=== PATIENT | male | born 1965 | race African-American/Black ===

== ENCOUNTER 2017-08-19 22:27 | Emergency (ER) | payer OTHER, MEDICARE ==
[2017-08-19 23:17] LABS: ADD MAN DIFF? NO; BASOPHILS % 0.4 % (0.0-2.0); EOSINOPHILS # 0.1 10^3/ul (0.0-0.5); EOSINOPHILS % 1.5 % (0.0-7.0); HEMATOCRIT 43.3 % (42.0-52.0); HEMOGLOBIN 13.9 g/dl (14.0-18.0); LYMPHOCYTES # 1.7 10^3/ul (0.8-2.9); LYMPHOCYTES % 19.5 % (15.0-51.0); MEAN CORPUSCULAR HEMOGLOBIN 30.4 pg (29.0-33.0); MEAN CORPUSCULAR HGB CONC 32.1 g/dl (32.0-37.0); MEAN CORPUSCULAR VOLUME 94.7 fl (82.0-101.0); MEAN PLATELET VOLUME 10.1 fl (7.4-10.4); MONOCYTE # 0.9 10^3/ul (0.3-0.9); MONOCYTES % 10.2 % (0.0-11.0); NEUTROPHIL # 5.8 10^3/ul (1.6-7.5); NEUTROPHILS % 68.2 % (39.0-77.0); PLATELET COUNT 178 10^3/UL (140-415); RED BLOOD COUNT 4.57 10^6/ul (4.70-6.10); RED CELL DISTRIBUTION WIDTH 15.8 % (11.5-14.5)
[2017-08-19 23:17] LABS: WHITE BLOOD COUNT 8.6 10^3/ul (4.8-10.8)
[2017-08-19] MEDS: LIDOCAINE/MYLANTA 40 ML BTL PO (23:20)
[2017-08-19] MEDS: METHYLPREDNISOLONE 125 MG INJ IV (23:20)
[2017-08-19] MEDS: ONDANSETRON 4 MG INJ IV (23:20)
[2017-08-19] MEDS: morphine 4 MG/ML VIAL IV (23:20)
[2017-08-19] MEDS: SOD CHLORIDE 0.9% 1,000 ML IV (23:21)
[2017-08-19] MEDS: ALBUTEROL 0.5% (NEB) 2.5 MG/0.5 ML AMP INH (23:29)
[2017-08-19] MEDS: IPRATROPIUM (NEB) 0.5 MG/2.5 ML AMP INH (23:29)
[2017-08-19 23:41] LABS: ALANINE AMINOTRANSFERASE 37 IU/L (13-69); ALBUMIN 3.7 g/dl (3.3-4.9); ALBUMIN/GLOBULIN RATIO 1.12; ALKALINE PHOSPHATASE 194 IU/L (42-121); ANION GAP 9 (8-16); ASPARTATE AMINO TRANSFERASE 30 IU/L (15-46); BILIRUBIN,INDIRECT 0.3 mg/dl (0-1.1); BILIRUBIN,TOTAL 0.3 mg/dl (0.2-1.3); BLOOD UREA NITROGEN 22 mg/dl (7-20); CALCIUM 8.8 mg/dl (8.4-10.2); CARBON DIOXIDE 28 mmol/L (21-31); CHLORIDE 103 mmol/L (97-110); CREATININE 0.93 mg/dl (0.61-1.24); GLUCOSE 180 mg/dl (70-220); LIPASE 161 U/L (23-300); POTASSIUM 4.7 mmol/L (3.5-5.1); SODIUM 135 mmol/L (135-144)
[2017-08-19 23:47] LABS: B-TYPE NATRIURETIC PEPTIDE 1470 PG/ML (0-125)
[2017-08-19 23:51] LABS: TROPONIN-I < 0.010 ng/ml (0.000-0.120)
[2017-08-20] MEDS: FUROSEMIDE 40 MG INJ IV (01:31)
[2017-08-20] MEDS: HYDROCODONE/APAP (10/325) TAB PO (02:45)
[2017-08-20] MEDS ORDERED: NACL 0.9% 3 ML SYG IV (05:30)
[2017-08-20] MEDS ORDERED: ONDANSETRON 4 MG INJ IV (05:30)
[2017-08-20] MEDS ORDERED: MAGNESIUM HYDROXIDE 30ML CUP PO (05:30)
[2017-08-20] MEDS ORDERED: morphine 2 MG INJ IV (05:30)
[2017-08-20] MEDS ORDERED: ACETAMINOPHEN 325 MG TAB PO (05:30)
[2017-08-20 05:57] LABS: ADD MAN DIFF? NO
[2017-08-20 06:00] LABS: ABNORMAL IP MESSAGE 1; BASOPHILS % 0.1 % (0.0-2.0); EOSINOPHILS % 0.1 % (0.0-7.0); HEMATOCRIT 43.6 % (42.0-52.0); LYMPHOCYTES # 0.4 10^3/ul (0.8-2.9); LYMPHOCYTES % 5.5 % (15.0-51.0); MEAN CORPUSCULAR HEMOGLOBIN 31.7 pg (29.0-33.0); MEAN CORPUSCULAR HGB CONC 32.1 g/dl (32.0-37.0); MEAN CORPUSCULAR VOLUME 98.6 fl (82.0-101.0); MEAN PLATELET VOLUME 10.1 fl (7.4-10.4); MONOCYTE # 0.1 10^3/ul (0.3-0.9); MONOCYTES % 0.7 % (0.0-11.0); NEUTROPHIL # 6.8 10^3/ul (1.6-7.5); NEUTROPHILS % 93.5 % (39.0-77.0); PLATELET COUNT 153 10^3/UL (140-415); POSITIVE DIFF @See below; RED BLOOD COUNT 4.42 10^6/ul (4.70-6.10); RED CELL DISTRIBUTION WIDTH 15.4 % (11.5-14.5)
[2017-08-20 06:00] LABS: WHITE BLOOD COUNT 7.2 10^3/ul (4.8-10.8)
[2017-08-20 06:26] LABS: ANION GAP 12 (8-16); BLOOD UREA NITROGEN 21 mg/dl (7-20); CALCIUM 8.2 mg/dl (8.4-10.2); CARBON DIOXIDE 29 mmol/L (21-31); CHLORIDE 101 mmol/L (97-110); CREATININE 0.96 mg/dl (0.61-1.24); GLUCOSE 340 mg/dl (70-220); POTASSIUM 5.6 mmol/L (3.5-5.1); SODIUM 136 mmol/L (135-144)
[2017-08-20] MEDS: FAMOTIDINE 20 MG TAB PO (08:38)
[2017-08-20] MEDS: METHYLPREDNISOLONE 125 MG INJ IV (08:39)
[2017-08-20] MEDS: HEPARIN 5,000 UNIT/0.5 ML VIAL SC (08:40)
[2017-08-20] MEDS ORDERED: FUROSEMIDE 20 MG INJ IV (09:00)
[2017-08-20] MEDS: ALBUTEROL/IPRATROPIUM (NEB) 3 ML AMP HHN (09:06)
== END 2017-08-20 10:49 | disposition left against medical advice (07) ==
LOC: E/R 22:27
DX: J96.00 Acute respiratory failure, unspecified whether with hypoxia or hypercapnia (principal); J44.9 Chronic obstructive pulmonary disease, unspecified; I50.9 Heart failure, unspecified; E11.9 Type 2 diabetes mellitus without complications; I10 Essential (primary) hypertension; F17.210 Nicotine dependence, cigarettes, uncomplicated; Z99.89 Dependence on other enabling machines and devices
CPT/HCPCS: 36415; 71045; 71250; 74018; 76700; 80048; 80053; 83690; 83880; 84484; 85025; 93005; 93306; 94640; 94644; 94660; 96372; 96374; 96375; 96376; 99291-25

== ENCOUNTER 2017-11-06 01:26 | Inpatient (IN) | payer MEDICARE, OTHER ==
[2017-11-06] MEDS ORDERED: NORepinephrine 8MG/250 ML (PMX 250 ML (01:41)
[2017-11-06 02:11] LABS: ADD MAN DIFF? NO
[2017-11-06 02:13] LABS: WHITE BLOOD COUNT 8.6 10^3/ul (4.8-10.8)
[2017-11-06 02:13] LABS: BASOPHILS % 0.5 % (0.0-2.0); EOSINOPHILS # 0.3 10^3/ul (0.0-0.5); EOSINOPHILS % 2.9 % (0.0-7.0); HEMATOCRIT 42.2 % (42.0-52.0); HEMOGLOBIN 12.8 g/dl (14.0-18.0); LYMPHOCYTES # 3.6 10^3/ul (0.8-2.9); LYMPHOCYTES % 42.2 % (15.0-51.0); MEAN CORPUSCULAR HEMOGLOBIN 30.5 pg (29.0-33.0); MEAN CORPUSCULAR HGB CONC 30.3 g/dl (32.0-37.0); MEAN CORPUSCULAR VOLUME 100.5 fl (82.0-101.0); MEAN PLATELET VOLUME 10.5 fl (7.4-10.4); MONOCYTE # 0.8 10^3/ul (0.3-0.9); MONOCYTES % 9.8 % (0.0-11.0); NEUTROPHIL # 3.8 10^3/ul (1.6-7.5); NEUTROPHILS % 44.1 % (39.0-77.0); NUCLEATED RED BLOOD CELLS% 0.2 /100WBC (0.0-0.0); PLATELET COUNT 212 10^3/UL (140-415); RED CELL DISTRIBUTION WIDTH 15.5 % (11.5-14.5)
[2017-11-06 02:20] LABS: ANION GAP 20 (8-16); BLOOD UREA NITROGEN 31 mg/dl (7-20); CALCIUM 7.7 mg/dl (8.4-10.2); CARBON DIOXIDE 20 mmol/L (21-31); CHLORIDE 101 mmol/L (97-110); CREATININE 1.49 mg/dl (0.61-1.24); GLUCOSE 209 mg/dl (70-220); POTASSIUM 5.9 mmol/L (3.5-5.1); SODIUM 135 mmol/L (135-144)
[2017-11-06 02:22] LABS: ACETAMINOPHEN < 10.0 ug/ml (10.0-30.0); ETHANOL < 10.0 mg/dl; SALICYLATE < 1.0 mg/dl (5.0-30.0)
[2017-11-06] MEDS: NORepinephrine 8MG/250 ML (PMX 250 ML IV (02:28)
[2017-11-06] MEDS: SOD CHLORIDE 0.9% 1,000 ML IV ×5 (02:28→15:42)
[2017-11-06 02:31] LABS: B-TYPE NATRIURETIC PEPTIDE 2230 PG/ML (0-125); TROPONIN-I < 0.012 ng/ml (0.000-0.120)
[2017-11-06] MEDS: CEFTRIAXONE 1 GM/50 ML (PMX) 50 ML IVPB (02:41)
[2017-11-06 03:03] LABS: AADO2 Arterial 518.3 mmHg (7.0-24.0); Allen Test ACCEPTAB; Arterial Base Excess -8.2 mmol/L (-3.0-3); Arterial Blood Gas Oxygen Sat 96.8 mmHG (95.0-98.0); Arterial COHb 6.6 % (0.0-3.0); Arterial Fraction of Oxyhgb 90.1 % (93.0-99.0); Arterial HCO3 23.5 mmol/L (22.0-26.0); Arterial MetHb 0.3 % (0.0-1.5); Arterial Total Hemglobin 14.5 g/dl (12.0-18.0); Arterial pCO2 79.9 mmhg (35-45); MODE VENT - AC; Site Right Radial
[2017-11-06] MEDS: ASPIRIN 300 MG SUPP PR (03:06)
[2017-11-06] MEDS: CALCIUM GLUCONATE 10% 1 GM in DEXTROSE 5% 100 ML IVPB (03:07)
[2017-11-06] MEDS: ASPIRIN 81 MG TAB PO (03:08)
[2017-11-06] MEDS: ACCU-CHEK XX ×22 (03:30→23:00)
[2017-11-06] MEDS ORDERED: MEPERIDINE 25 MG INJ IV ×2 (03:30)
[2017-11-06] MEDS ORDERED: ACETAMINOPHEN 650MG/20.3ML CUP PO (03:30)
[2017-11-06] MEDS ORDERED: PROPOFOL 100 ML IV (03:30)
[2017-11-06] MEDS ORDERED: ACETAMINOPHEN 650 MG SUPP PR ×2 (03:30)
[2017-11-06] MEDS ORDERED: DEXTROSE 50% 50 ML SYRINGE IV ×3 (03:30→07:30)
[2017-11-06] MEDS ORDERED: LORAZEPAM 2 MG INJ IV (03:30)
[2017-11-06] MEDS: FAMOTIDINE 20 MG INJ IV (03:35)
[2017-11-06 04:38] LABS: INR 1.27; PROTIME 16.1 Sec (11.9-14.9); PT RATIO 1.3
[2017-11-06 04:39] LABS: PARTIAL THROMBOPLASTIN TIME 30.1 Sec (25.0-35.0)
[2017-11-06 04:42] LABS: LACTIC ACID 4.2 mmol/L (0.5-2.0)
[2017-11-06] MEDS: OCULAR LUBRICANT 3.5 GM OPH OINT BOTH EYES ×3 (06:00→18:00)
[2017-11-06] MEDS: ARTIFICIAL TEARS 15 ML OPH BOTH EYES ×3 (06:00→18:00)
[2017-11-06] MEDS: PANTOPRAZOLE 40 MG INJ IV (06:00)
[2017-11-06] MEDS ORDERED: EPINEPHrine 0.1 MG/ML SYG (07:00)
[2017-11-06] MEDS ORDERED: NA BICARBONATE 8.4% 50 ML SYG (07:00)
[2017-11-06 07:23] LABS: LACTIC ACID 2.2 mmol/L (0.5-2.0)
[2017-11-06] MEDS ORDERED: ACCU-CHEK XX (07:30)
[2017-11-06] MEDS ORDERED: INSULIN HUMAN REGULAR 100 UNIT in SOD CHLORIDE 0.9% 99 ML IV (07:30)
[2017-11-06] MEDS: VECURONIUM 100 MG in DEXTROSE 5% 100 ML IV (08:13)
[2017-11-06] MEDS: MIDAZOLAM (DRIP) 50 mg/50 mL 50 ML IV (08:13)
[2017-11-06] MEDS: INSULIN HUMAN REGULAR 100 UNIT in SOD CHLORIDE 0.9% 99 ML IV (08:51)
[2017-11-06 09:44] LABS: CK-MB 8.78 ng/ml (0.0-2.4)
[2017-11-06 09:49] LABS: TROPONIN-I 0.525 ng/ml (0.000-0.120)
[2017-11-06] MEDS: CEFEPIME 1GM/50 ML (PMX) 50 ML IVPB ×2 (09:50→20:25)
[2017-11-06] MEDS: HEPARIN 5,000 UNIT/0.5 ML VIAL SC ×2 (09:53→20:27)
[2017-11-06 10:45] LABS: CK INDEX 4.7; CREATINE KINASE 185 IU/L (23-200)
[2017-11-06] MEDS ORDERED: DOPamine-D5W 1.6 MG/ML 250 ML IV (11:00)
[2017-11-06 11:24] LABS: ANION GAP 16 (8-16); BLOOD UREA NITROGEN 37 mg/dl (7-20); CALCIUM 7.9 mg/dl (8.4-10.2); CARBON DIOXIDE 22 mmol/L (21-31); CHLORIDE 104 mmol/L (97-110); CREATININE 1.65 mg/dl (0.61-1.24); GLUCOSE 169 mg/dl (70-220); SODIUM 136 mmol/L (135-144)
[2017-11-06 11:29] LABS: POTASSIUM 6.2 mmol/L (3.5-5.1)
[2017-11-06] MEDS ORDERED: NA POLYST SULFON 15 GM/60 ML BTL (11:59)
[2017-11-06] MEDS ORDERED: FUROSEMIDE 40 MG INJ (11:59)
[2017-11-06] MEDS: FUROSEMIDE 40 MG INJ IV (12:19)
[2017-11-06] MEDS: NA POLYST SULFON 15 GM/60 ML BTL PR (12:20)
[2017-11-06 14:13] LABS: ADD MAN DIFF? NO
[2017-11-06 14:16] LABS: ABNORMAL IP MESSAGE 1; BASOPHILS % 0.2 % (0.0-2.0); EOSINOPHILS % 0.2 % (0.0-7.0); HEMATOCRIT 46.7 % (42.0-52.0); HEMOGLOBIN 15.2 g/dl (14.0-18.0); LYMPHOCYTES # 0.6 10^3/ul (0.8-2.9); LYMPHOCYTES % 4.5 % (15.0-51.0); MEAN CORPUSCULAR HEMOGLOBIN 30.8 pg (29.0-33.0); MEAN CORPUSCULAR HGB CONC 32.5 g/dl (32.0-37.0); MEAN CORPUSCULAR VOLUME 94.7 fl (82.0-101.0); MONOCYTE # 1.1 10^3/ul (0.3-0.9); MONOCYTES % 8.8 % (0.0-11.0); NEUTROPHILS % 85.9 % (39.0-77.0); PLATELET COUNT 214 10^3/UL (140-415); POSITIVE DIFF @See below; RED BLOOD COUNT 4.93 10^6/ul (4.70-6.10); RED CELL DISTRIBUTION WIDTH 15.4 % (11.5-14.5)
[2017-11-06 14:16] LABS: WHITE BLOOD COUNT 12.8 10^3/ul (4.8-10.8)
[2017-11-06 14:33] LABS: ANION GAP 14 (8-16); BLOOD UREA NITROGEN 40 mg/dl (7-20); CALCIUM 7.7 mg/dl (8.4-10.2); CARBON DIOXIDE 26 mmol/L (21-31); CHLORIDE 103 mmol/L (97-110); CREATINE KINASE 196 IU/L (23-200); GLUCOSE 123 mg/dl (70-220); POTASSIUM 5.6 mmol/L (3.5-5.1); SODIUM 137 mmol/L (135-144)
[2017-11-06 14:45] LABS: CK INDEX 5.9
[2017-11-06 14:46] LABS: TROPONIN-I 0.538 ng/ml (0.000-0.120)
[2017-11-06 15:37] LABS: AADO2 Arterial 599.6 mmHg (7.0-24.0); Allen Test ACCEPTAB; Arterial Base Excess -0.3 mmol/L (-3.0-3); Arterial Blood Gas Oxygen Sat 98.4 mmHG (95.0-98.0); Arterial COHb 1.8 % (0.0-3.0); Arterial Fraction of Oxyhgb 96.4 % (93.0-99.0); Arterial HCO3 24.1 mmol/L (22.0-26.0); Arterial MetHb 0.2 % (0.0-1.5); Arterial Total Hemglobin 16.3 g/dl (12.0-18.0); Arterial pCO2 32.9 mmhg (35-45); MODE VENT - AC; Site Right Radial; Temperature 33.1 C
[2017-11-06 21:31] LABS: ADD MAN DIFF? NO
[2017-11-06 21:32] LABS: WHITE BLOOD COUNT 8.7 10^3/ul (4.8-10.8)
[2017-11-06 21:32] LABS: BASOPHILS % 0.2 % (0.0-2.0); EOSINOPHILS # 0.1 10^3/ul (0.0-0.5); HEMATOCRIT 45.7 % (42.0-52.0); HEMOGLOBIN 14.9 g/dl (14.0-18.0); LYMPHOCYTES # 0.6 10^3/ul (0.8-2.9); LYMPHOCYTES % 6.9 % (15.0-51.0); MEAN CORPUSCULAR HEMOGLOBIN 30.1 pg (29.0-33.0); MEAN CORPUSCULAR HGB CONC 32.6 g/dl (32.0-37.0); MEAN CORPUSCULAR VOLUME 92.3 fl (82.0-101.0); MONOCYTE # 0.8 10^3/ul (0.3-0.9); MONOCYTES % 8.8 % (0.0-11.0); NEUTROPHIL # 7.2 10^3/ul (1.6-7.5); NEUTROPHILS % 82.8 % (39.0-77.0); PLATELET COUNT 198 10^3/UL (140-415); RED BLOOD COUNT 4.95 10^6/ul (4.70-6.10); RED CELL DISTRIBUTION WIDTH 15.3 % (11.5-14.5)
[2017-11-06 21:35] LABS: AADO2 Arterial 514.1 mmHg (7.0-24.0); Arterial Base Excess -1.7 mmol/L (-3.0-3); Arterial Blood Gas Oxygen Sat 98.7 mmHG (95.0-98.0); Arterial COHb 1.4 % (0.0-3.0); Arterial Fraction of Oxyhgb 97.1 % (93.0-99.0); Arterial MetHb 0.2 % (0.0-1.5); MODE VENT - AC; Site Right Brachial
[2017-11-06 21:52] LABS: PARTIAL THROMBOPLASTIN TIME 32.5 Sec (25.0-35.0); PROTIME 17.4 Sec (11.9-14.9); PT RATIO 1.4
[2017-11-06 21:57] LABS: PHOSPHORUS 3.7 mg/dl (2.5-4.9)
[2017-11-06 21:57] LABS: ANION GAP 13 (8-16); BLOOD UREA NITROGEN 42 mg/dl (7-20); CALCIUM 7.6 mg/dl (8.4-10.2); CARBON DIOXIDE 26 mmol/L (21-31); CHLORIDE 104 mmol/L (97-110); CREATININE 1.95 mg/dl (0.61-1.24); GLUCOSE 103 mg/dl (70-220); MAGNESIUM 1.8 mg/dl (1.7-2.5); POTASSIUM 5.1 mmol/L (3.5-5.1); SODIUM 138 mmol/L (135-144)
[2017-11-06] MEDS: MAGNESIUM SULFATE 2 GM/50 ML 50 ML IVPB (22:32)
[2017-11-07] MEDS: ACCU-CHEK XX ×24 (00:14→23:12)
[2017-11-07] MEDS: OCULAR LUBRICANT 3.5 GM OPH OINT BOTH EYES ×5 (00:17→23:12)
[2017-11-07] MEDS: ARTIFICIAL TEARS 15 ML OPH BOTH EYES ×5 (00:17→23:12)
[2017-11-07 00:32] LABS: ADD MAN DIFF? NO
[2017-11-07 00:33] LABS: BASOPHILS % 0.4 % (0.0-2.0); EOSINOPHILS # 0.1 10^3/ul (0.0-0.5); EOSINOPHILS % 1.7 % (0.0-7.0); HEMATOCRIT 45.1 % (42.0-52.0); HEMOGLOBIN 14.7 g/dl (14.0-18.0); LYMPHOCYTES # 0.6 10^3/ul (0.8-2.9); LYMPHOCYTES % 9.1 % (15.0-51.0); MEAN CORPUSCULAR HEMOGLOBIN 29.8 pg (29.0-33.0); MEAN CORPUSCULAR HGB CONC 32.6 g/dl (32.0-37.0); MEAN CORPUSCULAR VOLUME 91.5 fl (82.0-101.0); MEAN PLATELET VOLUME 9.8 fl (7.4-10.4); MONOCYTE # 0.6 10^3/ul (0.3-0.9); MONOCYTES % 8.9 % (0.0-11.0); NEUTROPHIL # 5.6 10^3/ul (1.6-7.5); NEUTROPHILS % 79.6 % (39.0-77.0); PLATELET COUNT 196 10^3/UL (140-415); RED BLOOD COUNT 4.93 10^6/ul (4.70-6.10); RED CELL DISTRIBUTION WIDTH 15.2 % (11.5-14.5)
[2017-11-07 00:55] LABS: ANION GAP 12 (8-16); BLOOD UREA NITROGEN 43 mg/dl (7-20); CALCIUM 7.5 mg/dl (8.4-10.2); CARBON DIOXIDE 25 mmol/L (21-31); CHLORIDE 105 mmol/L (97-110); CREATININE 2.05 mg/dl (0.61-1.24); GLUCOSE 95 mg/dl (70-220); SODIUM 137 mmol/L (135-144)
[2017-11-07] MEDS: SOD CHLORIDE 0.9% 1,000 ML IV ×3 (02:23→15:00)
[2017-11-07] MEDS: ACETAMINOPHEN 650MG/20.3ML CUP PO ×4 (03:21→20:51)
[2017-11-07 03:24] LABS: Arterial Base Excess -0.4 mmol/L (-3.0-3); Arterial Blood Gas Oxygen Sat 97.6 mmHG (95.0-98.0); Arterial COHb 1.3 % (0.0-3.0); Arterial HCO3 22.6 mmol/L (22.0-26.0); Arterial MetHb 0.3 % (0.0-1.5); Arterial Total Hemglobin 15.8 g/dl (12.0-18.0); Arterial pCO2 27.5 mmhg (35-45); MODE VENT - AC; Site Right Brachial
[2017-11-07] MEDS ORDERED: ACETAMINOPHEN 650 MG SUPP PR (03:30)
[2017-11-07] MEDS: IPRATROPIUM (HFA) 12.9 GM INHALER INH ×4 (04:54→17:33)
[2017-11-07] MEDS: ALBUTEROL HFA 8 GM INHALER INH ×4 (04:54→17:34)
[2017-11-07] MEDS: PANTOPRAZOLE 40 MG INJ IV (05:49)
[2017-11-07 06:28] LABS: ADD MAN DIFF? NO
[2017-11-07 06:45] LABS: ABNORMAL IP MESSAGE 1; BASOPHILS % 0.6 % (0.0-2.0); EOSINOPHILS # 0.1 10^3/ul (0.0-0.5); EOSINOPHILS % 2.4 % (0.0-7.0); HEMATOCRIT 44.7 % (42.0-52.0); LYMPHOCYTES # 0.6 10^3/ul (0.8-2.9); LYMPHOCYTES % 10.9 % (15.0-51.0); MEAN CORPUSCULAR HEMOGLOBIN 30.3 pg (29.0-33.0); MEAN CORPUSCULAR HGB CONC 33.6 g/dl (32.0-37.0); MEAN CORPUSCULAR VOLUME 90.3 fl (82.0-101.0); MEAN PLATELET VOLUME 10.5 fl (7.4-10.4); MONOCYTE # 0.5 10^3/ul (0.3-0.9); MONOCYTES % 9.5 % (0.0-11.0); NEUTROPHIL # 4.1 10^3/ul (1.6-7.5); NEUTROPHILS % 76.2 % (39.0-77.0); PLATELET COUNT 187 10^3/UL (140-415); POSITIVE DIFF @See below; RED BLOOD COUNT 4.95 10^6/ul (4.70-6.10); RED CELL DISTRIBUTION WIDTH 15.1 % (11.5-14.5)
[2017-11-07 06:45] LABS: WHITE BLOOD COUNT 5.4 10^3/ul (4.8-10.8)
[2017-11-07 07:07] LABS: ANION GAP 10 (8-16); BLOOD UREA NITROGEN 45 mg/dl (7-20); CALCIUM 7.5 mg/dl (8.4-10.2); CARBON DIOXIDE 25 mmol/L (21-31); CHLORIDE 107 mmol/L (97-110); CREATININE 2.15 mg/dl (0.61-1.24); GLUCOSE 82 mg/dl (70-220); POTASSIUM 4.8 mmol/L (3.5-5.1); SODIUM 137 mmol/L (135-144)
[2017-11-07] MEDS: NORepinephrine 8MG/250 ML (PMX 250 ML IV ×2 (08:15→18:52)
[2017-11-07] MEDS: HEPARIN 5,000 UNIT/0.5 ML VIAL SC ×2 (08:27→20:52)
[2017-11-07] MEDS: CEFEPIME 1GM/50 ML (PMX) 50 ML IVPB (08:42)
[2017-11-07 09:46] LABS: AADO2 Arterial 468.7 mmHg (7.0-24.0); Allen Test ACCEPTAB; Arterial Base Excess -0.9 mmol/L (-3.0-3); Arterial Blood Gas Oxygen Sat 97.8 mmHG (95.0-98.0); Arterial COHb 1.1 % (0.0-3.0); Arterial Fraction of Oxyhgb 96.4 % (93.0-99.0); Arterial HCO3 21.4 mmol/L (22.0-26.0); Arterial MetHb 0.3 % (0.0-1.5); Arterial Total Hemglobin 16.2 g/dl (12.0-18.0); Arterial pCO2 25.9 mmhg (35-45); MODE VENT - AC; Site Right Radial; Temperature 33.7 C
[2017-11-07 10:00] LABS: AADO2 Arterial 546.4 mmHg (7.0-24.0)
[2017-11-07 10:03] LABS: AADO2 Arterial 612.4 mmHg (7.0-24.0); Allen Test ACCEPTAB; Arterial Base Excess -2.6 mmol/L (-3.0-3); Arterial Blood Gas Oxygen Sat 93.7 mmHG (95.0-98.0); Arterial COHb 3.4 % (0.0-3.0); Arterial Fraction of Oxyhgb 90.3 % (93.0-99.0); Arterial HCO3 25.3 mmol/L (22.0-26.0); Arterial MetHb 0.2 % (0.0-1.5); Arterial Total Hemglobin 16.5 g/dl (12.0-18.0); Arterial pCO2 47.8 mmhg (35-45); MODE VENT - AC; Site Right Radial; Temperature 33.6 C
[2017-11-07 10:09] LABS: AADO2 Arterial 514.1 mmHg (7.0-24.0); Arterial Base Excess -1.7 mmol/L (-3.0-3); Arterial Blood Gas Oxygen Sat 98.7 mmHG (95.0-98.0); Arterial COHb 1.4 % (0.0-3.0); Arterial Fraction of Oxyhgb 97.1 % (93.0-99.0); Arterial MetHb 0.2 % (0.0-1.5); MODE VENT - AC; Site Right Brachial
[2017-11-07] MEDS: FUROSEMIDE 40 MG INJ IV (11:10)
[2017-11-07 11:53] LABS: ALANINE AMINOTRANSFERASE 40 IU/L (13-69); ALBUMIN 2.2 g/dl (3.3-4.9); ALKALINE PHOSPHATASE 195 IU/L (42-121); ASPARTATE AMINO TRANSFERASE 52 IU/L (15-46); BILIRUBIN,INDIRECT 0.2 mg/dl (0-1.1); BILIRUBIN,TOTAL 0.2 mg/dl (0.2-1.3); TOTAL PROTEIN 5.2 g/dl (6.1-8.1)
[2017-11-07 12:16] LABS: ADD MAN DIFF? NO
[2017-11-07] MEDS: DEXTROSE 50% 50 ML SYRINGE IV (12:19)
[2017-11-07 12:32] LABS: ABNORMAL IP MESSAGE 1; BASOPHILS % 0.6 % (0.0-2.0); EOSINOPHILS # 0.2 10^3/ul (0.0-0.5); EOSINOPHILS % 2.2 % (0.0-7.0); HEMATOCRIT 44.1 % (42.0-52.0); HEMOGLOBIN 14.5 g/dl (14.0-18.0); LYMPHOCYTES # 0.5 10^3/ul (0.8-2.9); MEAN CORPUSCULAR HEMOGLOBIN 29.7 pg (29.0-33.0); MEAN CORPUSCULAR HGB CONC 32.9 g/dl (32.0-37.0); MEAN CORPUSCULAR VOLUME 90.2 fl (82.0-101.0); MEAN PLATELET VOLUME 10.4 fl (7.4-10.4); MONOCYTE # 0.7 10^3/ul (0.3-0.9); MONOCYTES % 9.6 % (0.0-11.0); NEUTROPHIL # 5.8 10^3/ul (1.6-7.5); NEUTROPHILS % 80.3 % (39.0-77.0); PLATELET COUNT 189 10^3/UL (140-415); POSITIVE DIFF @See below; RED BLOOD COUNT 4.89 10^6/ul (4.70-6.10); RED CELL DISTRIBUTION WIDTH 15.2 % (11.5-14.5)
[2017-11-07 12:32] LABS: WHITE BLOOD COUNT 7.3 10^3/ul (4.8-10.8)
[2017-11-07 12:56] LABS: ANION GAP 11 (8-16); BLOOD UREA NITROGEN 45 mg/dl (7-20); CALCIUM 7.3 mg/dl (8.4-10.2); CARBON DIOXIDE 26 mmol/L (21-31); CHLORIDE 107 mmol/L (97-110); CREATININE 2.27 mg/dl (0.61-1.24); GLUCOSE 72 mg/dl (70-220); POTASSIUM 4.7 mmol/L (3.5-5.1); SODIUM 139 mmol/L (135-144)
[2017-11-07 12:58] LABS: AMYLASE 53 U/L (11-123); CREATINE KINASE 130 IU/L (23-200); LIPASE 22 U/L (23-300); MAGNESIUM 2.1 mg/dl (1.7-2.5)
[2017-11-07 12:58] LABS: PHOSPHORUS 3.9 mg/dl (2.5-4.9)
[2017-11-07 13:10] LABS: CK INDEX 9.3
[2017-11-07 13:15] LABS: INR 1.56; PT RATIO 1.5
[2017-11-07 13:16] LABS: PARTIAL THROMBOPLASTIN TIME 35.2 Sec (25.0-35.0)
[2017-11-07 13:20] LABS: TROPONIN-I 0.199 ng/ml (0.000-0.120)
[2017-11-07 13:35] LABS: D-DIMER 2033.92 ng/ml (<460)
[2017-11-07 14:00] LABS: LACTIC ACID 1.5 mmol/L (0.5-2.0)
[2017-11-07 17:43] LABS: ADD MAN DIFF? NO
[2017-11-07 17:45] LABS: ABNORMAL IP MESSAGE 1; BASOPHILS % 0.4 % (0.0-2.0); EOSINOPHILS # 0.2 10^3/ul (0.0-0.5); EOSINOPHILS % 1.5 % (0.0-7.0); HEMATOCRIT 46.9 % (42.0-52.0); HEMOGLOBIN 15.8 g/dl (14.0-18.0); LYMPHOCYTES # 0.5 10^3/ul (0.8-2.9); LYMPHOCYTES % 5.2 % (15.0-51.0); MEAN CORPUSCULAR HEMOGLOBIN 30.2 pg (29.0-33.0); MEAN CORPUSCULAR HGB CONC 33.7 g/dl (32.0-37.0); MEAN CORPUSCULAR VOLUME 89.5 fl (82.0-101.0); MEAN PLATELET VOLUME 10.1 fl (7.4-10.4); MONOCYTE # 0.8 10^3/ul (0.3-0.9); MONOCYTES % 8.4 % (0.0-11.0); NEUTROPHIL # 8.4 10^3/ul (1.6-7.5); NEUTROPHILS % 84.2 % (39.0-77.0); PLATELET COUNT 206 10^3/UL (140-415); POSITIVE DIFF @See below; RED BLOOD COUNT 5.24 10^6/ul (4.70-6.10); RED CELL DISTRIBUTION WIDTH 15.2 % (11.5-14.5)
[2017-11-07 18:02] LABS: INR 1.54; PROTIME 18.8 Sec (11.9-14.9); PT RATIO 1.5
[2017-11-07 18:04] LABS: LACTIC ACID 1.3 mmol/L (0.5-2.0)
[2017-11-07 18:04] LABS: ANION GAP 9 (8-16); BLOOD UREA NITROGEN 46 mg/dl (7-20); CALCIUM 7.5 mg/dl (8.4-10.2); CARBON DIOXIDE 24 mmol/L (21-31); CHLORIDE 108 mmol/L (97-110); CREATININE 2.44 mg/dl (0.61-1.24); GLUCOSE 100 mg/dl (70-220); POTASSIUM 4.9 mmol/L (3.5-5.1); SODIUM 136 mmol/L (135-144)
[2017-11-07 18:06] LABS: PHOSPHORUS 4.3 mg/dl (2.5-4.9)
[2017-11-07 18:06] LABS: AMYLASE 49 U/L (11-123); LIPASE 26 U/L (23-300); MAGNESIUM 1.9 mg/dl (1.7-2.5)
[2017-11-07 18:10] LABS: ADD UMIC YES; UR ASCORBIC ACID NEGATIVE (NEGATIVE); UR BILIRUBIN (Dip) NEGATIVE (NEGATIVE); UR BLOOD (Dip) 2+ mg/dL (NEGATIVE); UR CLARITY CLEAR (CLEAR); UR COLOR STRAW (YELLOW); UR GLUCOSE (Dip) NEGATIVE (NEGATIVE); UR KETONES (Dip) NEGATIVE (NEGATIVE); UR LEUKOCYTE ESTERASE (Dip) 2+ Leu/ul (NEGATIVE); UR NITRITE (Dip) NEGATIVE (NEGATIVE); UR RBC 18 /HPF (0-5); UR SPECIFIC GRAVITY (Dip) 1.004 (1.003-1.030); UR TOTAL PROTEIN (Dip) NEGATIVE (NEGATIVE); UR UROBILINOGEN (Dip) NEGATIVE (NEGATIVE); UR WBC 38 /HPF (0-5)
[2017-11-07 18:17] LABS: TROPONIN-I 0.157 ng/ml (0.000-0.120)
[2017-11-07 18:28] LABS: AMPHETAMINE/METHAMPHETAMINE Negative (NEGATIVE); BARBITURATES Negative (NEGATIVE); BENZODIAZEPINES Positive (NEGATIVE); CANNABINOIDS Negative (NEGATIVE); COCAINE Negative (NEGATIVE); OPIATES Negative (NEGATIVE)
[2017-11-07 23:32] LABS: ADD MAN DIFF? NO
[2017-11-07 23:33] LABS: BASOPHIL # 0.1 10^3/ul (0.0-0.1); BASOPHILS % 0.4 % (0.0-2.0); EOSINOPHILS # 0.2 10^3/ul (0.0-0.5); EOSINOPHILS % 1.5 % (0.0-7.0); HEMATOCRIT 47.9 % (42.0-52.0); HEMOGLOBIN 16.1 g/dl (14.0-18.0); LYMPHOCYTES # 0.8 10^3/ul (0.8-2.9); LYMPHOCYTES % 6.2 % (15.0-51.0); MEAN CORPUSCULAR HEMOGLOBIN 30.3 pg (29.0-33.0); MEAN CORPUSCULAR HGB CONC 33.6 g/dl (32.0-37.0); MEAN CORPUSCULAR VOLUME 90.2 fl (82.0-101.0); MEAN PLATELET VOLUME 10.1 fl (7.4-10.4); MONOCYTE # 1.2 10^3/ul (0.3-0.9); MONOCYTES % 9.3 % (0.0-11.0); NEUTROPHIL # 10.4 10^3/ul (1.6-7.5); NEUTROPHILS % 82.3 % (39.0-77.0); PLATELET COUNT 199 10^3/UL (140-415); RED BLOOD COUNT 5.31 10^6/ul (4.70-6.10); RED CELL DISTRIBUTION WIDTH 15.4 % (11.5-14.5)
[2017-11-07 23:33] LABS: WHITE BLOOD COUNT 12.7 10^3/ul (4.8-10.8)
[2017-11-07 23:51] LABS: ANION GAP 13 (8-16); BLOOD UREA NITROGEN 46 mg/dl (7-20); CALCIUM 7.3 mg/dl (8.4-10.2); CARBON DIOXIDE 23 mmol/L (21-31); CHLORIDE 109 mmol/L (97-110); CREATININE 2.52 mg/dl (0.61-1.24); GLUCOSE 93 mg/dl (70-220); POTASSIUM 5.3 mmol/L (3.5-5.1); SODIUM 140 mmol/L (135-144)
[2017-11-08] MEDS: ACCU-CHEK XX ×13 (00:42→13:28)
[2017-11-08] MEDS: ACETAMINOPHEN 650MG/20.3ML CUP PO ×3 (03:29→17:49)
[2017-11-08 05:23] LABS: ADD MAN DIFF? NO
[2017-11-08] MEDS: SOD CHLORIDE 0.9% 1,000 ML IV ×3 (05:27→17:48)
[2017-11-08] MEDS: ARTIFICIAL TEARS 15 ML OPH BOTH EYES ×3 (05:28→17:49)
[2017-11-08] MEDS: OCULAR LUBRICANT 3.5 GM OPH OINT BOTH EYES ×3 (05:28→17:49)
[2017-11-08] MEDS: PANTOPRAZOLE 40 MG INJ IV (05:28)
[2017-11-08 05:29] LABS: WHITE BLOOD COUNT 11.8 10^3/ul (4.8-10.8)
[2017-11-08 05:29] LABS: BASOPHIL # 0.1 10^3/ul (0.0-0.1); BASOPHILS % 0.6 % (0.0-2.0); EOSINOPHILS # 0.2 10^3/ul (0.0-0.5); EOSINOPHILS % 1.6 % (0.0-7.0); HEMATOCRIT 47.3 % (42.0-52.0); HEMOGLOBIN 15.5 g/dl (14.0-18.0); LYMPHOCYTES # 0.9 10^3/ul (0.8-2.9); LYMPHOCYTES % 7.9 % (15.0-51.0); MEAN CORPUSCULAR HEMOGLOBIN 30.1 pg (29.0-33.0); MEAN CORPUSCULAR HGB CONC 32.8 g/dl (32.0-37.0); MEAN CORPUSCULAR VOLUME 91.8 fl (82.0-101.0); MEAN PLATELET VOLUME 10.9 fl (7.4-10.4); MONOCYTE # 1.2 10^3/ul (0.3-0.9); MONOCYTES % 9.9 % (0.0-11.0); NEUTROPHIL # 9.4 10^3/ul (1.6-7.5); NEUTROPHILS % 79.7 % (39.0-77.0); PLATELET COUNT 209 10^3/UL (140-415); RED BLOOD COUNT 5.15 10^6/ul (4.70-6.10); RED CELL DISTRIBUTION WIDTH 15.5 % (11.5-14.5)
[2017-11-08 05:49] LABS: ANION GAP 12 (8-16); BLOOD UREA NITROGEN 47 mg/dl (7-20); CALCIUM 7.3 mg/dl (8.4-10.2); CARBON DIOXIDE 23 mmol/L (21-31); CHLORIDE 110 mmol/L (97-110); CREATININE 2.82 mg/dl (0.61-1.24); GLUCOSE 82 mg/dl (70-220); POTASSIUM 5.6 mmol/L (3.5-5.1); SODIUM 139 mmol/L (135-144)
[2017-11-08] MEDS: HEPARIN 5,000 UNIT/0.5 ML VIAL SC ×2 (09:18→20:56)
[2017-11-08] MEDS: FUROSEMIDE 40 MG INJ IV (09:18)
[2017-11-08 12:57] LABS: ADD MAN DIFF? NO
[2017-11-08 13:00] LABS: WHITE BLOOD COUNT 14.2 10^3/ul (4.8-10.8)
[2017-11-08 13:00] LABS: ABNORMAL IP MESSAGE 1; BASOPHIL # 0.1 10^3/ul (0.0-0.1); BASOPHILS % 0.5 % (0.0-2.0); EOSINOPHILS # 0.2 10^3/ul (0.0-0.5); EOSINOPHILS % 1.5 % (0.0-7.0); HEMOGLOBIN 14.8 g/dl (14.0-18.0); LYMPHOCYTES % 7.2 % (15.0-51.0); MEAN CORPUSCULAR HEMOGLOBIN 29.7 pg (29.0-33.0); MEAN CORPUSCULAR HGB CONC 32.2 g/dl (32.0-37.0); MEAN CORPUSCULAR VOLUME 92.4 fl (82.0-101.0); MEAN PLATELET VOLUME 10.8 fl (7.4-10.4); MONOCYTE # 1.6 10^3/ul (0.3-0.9); MONOCYTES % 10.9 % (0.0-11.0); NEUTROPHIL # 11.3 10^3/ul (1.6-7.5); NEUTROPHILS % 79.5 % (39.0-77.0); PLATELET COUNT 194 10^3/UL (140-415); POSITIVE DIFF @See below; RED BLOOD COUNT 4.98 10^6/ul (4.70-6.10)
[2017-11-08 13:27] LABS: ANION GAP 12 (8-16); BLOOD UREA NITROGEN 49 mg/dl (7-20); CALCIUM 7.2 mg/dl (8.4-10.2); CARBON DIOXIDE 23 mmol/L (21-31); CHLORIDE 109 mmol/L (97-110); CREATININE 3.09 mg/dl (0.61-1.24); GLUCOSE 77 mg/dl (70-220); POTASSIUM 5.7 mmol/L (3.5-5.1); SODIUM 138 mmol/L (135-144)
[2017-11-08 19:13] LABS: ADD MAN DIFF? NO
[2017-11-08 19:16] LABS: WHITE BLOOD COUNT 14.5 10^3/ul (4.8-10.8)
[2017-11-08 19:16] LABS: BASOPHIL # 0.1 10^3/ul (0.0-0.1); BASOPHILS % 0.4 % (0.0-2.0); EOSINOPHILS # 0.3 10^3/ul (0.0-0.5); EOSINOPHILS % 1.8 % (0.0-7.0); HEMATOCRIT 45.6 % (42.0-52.0); HEMOGLOBIN 14.7 g/dl (14.0-18.0); LYMPHOCYTES # 0.9 10^3/ul (0.8-2.9); LYMPHOCYTES % 6.5 % (15.0-51.0); MEAN CORPUSCULAR HEMOGLOBIN 30.2 pg (29.0-33.0); MEAN CORPUSCULAR HGB CONC 32.2 g/dl (32.0-37.0); MEAN CORPUSCULAR VOLUME 93.6 fl (82.0-101.0); MEAN PLATELET VOLUME 10.8 fl (7.4-10.4); MONOCYTE # 1.5 10^3/ul (0.3-0.9); MONOCYTES % 10.3 % (0.0-11.0); NEUTROPHIL # 11.6 10^3/ul (1.6-7.5); NEUTROPHILS % 80.4 % (39.0-77.0); PLATELET COUNT 173 10^3/UL (140-415); RED BLOOD COUNT 4.87 10^6/ul (4.70-6.10); RED CELL DISTRIBUTION WIDTH 15.7 % (11.5-14.5)
[2017-11-08 19:35] LABS: ANION GAP 16 (8-16); BLOOD UREA NITROGEN 48 mg/dl (7-20); CALCIUM 7.3 mg/dl (8.4-10.2); CARBON DIOXIDE 21 mmol/L (21-31); CHLORIDE 111 mmol/L (97-110); CREATININE 3.21 mg/dl (0.61-1.24); GLUCOSE 67 mg/dl (70-220); POTASSIUM 5.7 mmol/L (3.5-5.1); SODIUM 142 mmol/L (135-144)
[2017-11-09] MEDS: OCULAR LUBRICANT 3.5 GM OPH OINT BOTH EYES ×4 (00:16→19:24)
[2017-11-09] MEDS: ARTIFICIAL TEARS 15 ML OPH BOTH EYES ×5 (00:17→23:00)
[2017-11-09] MEDS: PANTOPRAZOLE 40 MG INJ IV (05:15)
[2017-11-09] MEDS: SOD CHLORIDE 0.9% 1,000 ML IV ×2 (05:16→14:00)
[2017-11-09 06:29] LABS: ADD MAN DIFF? NO
[2017-11-09 06:46] LABS: WHITE BLOOD COUNT 15.2 10^3/ul (4.8-10.8)
[2017-11-09 06:46] LABS: ABNORMAL IP MESSAGE 1; BASOPHIL # 0.1 10^3/ul (0.0-0.1); BASOPHILS % 0.4 % (0.0-2.0); EOSINOPHILS # 0.2 10^3/ul (0.0-0.5); EOSINOPHILS % 1.5 % (0.0-7.0); HEMATOCRIT 45.3 % (42.0-52.0); HEMOGLOBIN 14.7 g/dl (14.0-18.0); LYMPHOCYTES # 0.8 10^3/ul (0.8-2.9); LYMPHOCYTES % 5.5 % (15.0-51.0); MEAN CORPUSCULAR HEMOGLOBIN 30.5 pg (29.0-33.0); MEAN CORPUSCULAR HGB CONC 32.5 g/dl (32.0-37.0); MEAN PLATELET VOLUME 11.2 fl (7.4-10.4); MONOCYTE # 1.5 10^3/ul (0.3-0.9); NEUTROPHIL # 12.4 10^3/ul (1.6-7.5); NEUTROPHILS % 82.1 % (39.0-77.0); PLATELET COUNT 173 10^3/UL (140-415); POSITIVE DIFF @See below; RED BLOOD COUNT 4.82 10^6/ul (4.70-6.10); RED CELL DISTRIBUTION WIDTH 15.9 % (11.5-14.5)
[2017-11-09 07:20] LABS: ANION GAP 17 (8-16); BLOOD UREA NITROGEN 51 mg/dl (7-20); CALCIUM 7.6 mg/dl (8.4-10.2); CARBON DIOXIDE 20 mmol/L (21-31); CHLORIDE 113 mmol/L (97-110); CREATININE 3.62 mg/dl (0.61-1.24); POTASSIUM 5.4 mmol/L (3.5-5.1); SODIUM 145 mmol/L (135-144)
[2017-11-09 07:26] LABS: GLUCOSE 44 mg/dl (70-220)
[2017-11-09] MEDS: FUROSEMIDE 40 MG INJ IV (09:53)
[2017-11-09] MEDS: HEPARIN 5,000 UNIT/0.5 ML VIAL SC ×2 (09:58→20:43)
[2017-11-09] MEDS ORDERED: DEXTROSE 50% 50 ML SYRINGE (16:19)
[2017-11-09] MEDS: DEXTROSE 50% 50 ML SYRINGE IV (16:32)
[2017-11-09 18:29] LABS: ANION GAP 17 (8-16); BLOOD UREA NITROGEN 53 mg/dl (7-20); CALCIUM 7.9 mg/dl (8.4-10.2); CARBON DIOXIDE 21 mmol/L (21-31); CHLORIDE 113 mmol/L (97-110); CREATININE 3.67 mg/dl (0.61-1.24); GLUCOSE 90 mg/dl (70-220); SODIUM 146 mmol/L (135-144)
[2017-11-09] MEDS ORDERED: HETASTARCH 6% IV* (21:30)
[2017-11-09] MEDS ORDERED: NACL IV* (21:30)
[2017-11-09] MEDS ORDERED: VASOPRESSIN 60 UNIT in SOD CHLORIDE 0.9% 57 ML IV (23:00)
[2017-11-09] MEDS ORDERED: DOBUTamine/D5W 2 MG/ML DRIP 250 ML IV (23:00)
[2017-11-09 23:17] LABS: ADD MAN DIFF? NO
[2017-11-09 23:19] LABS: ABNORMAL IP MESSAGE 1; BASOPHIL # 0.1 10^3/ul (0.0-0.1); BASOPHILS % 0.4 % (0.0-2.0); EOSINOPHILS # 0.2 10^3/ul (0.0-0.5); EOSINOPHILS % 1.8 % (0.0-7.0); HEMATOCRIT 48.8 % (42.0-52.0); LYMPHOCYTES # 0.5 10^3/ul (0.8-2.9); MEAN CORPUSCULAR HEMOGLOBIN 29.9 pg (29.0-33.0); MEAN CORPUSCULAR HGB CONC 32.8 g/dl (32.0-37.0); MONOCYTE # 1.2 10^3/ul (0.3-0.9); MONOCYTES % 9.8 % (0.0-11.0); NEUTROPHIL # 10.5 10^3/ul (1.6-7.5); NEUTROPHILS % 83.6 % (39.0-77.0); PLATELET COUNT 149 10^3/UL (140-415); POSITIVE DIFF @See below; RED BLOOD COUNT 5.36 10^6/ul (4.70-6.10); RED CELL DISTRIBUTION WIDTH 15.7 % (11.5-14.5)
[2017-11-09 23:19] LABS: WHITE BLOOD COUNT 12.6 10^3/ul (4.8-10.8)
[2017-11-09 23:37] LABS: INR 1.67; PT RATIO 1.6
[2017-11-09 23:38] LABS: PARTIAL THROMBOPLASTIN TIME 47.1 Sec (25.0-35.0)
[2017-11-09 23:42] LABS: AADO2 Arterial 390.7 mmHg (7.0-24.0); Arterial Base Excess -7.5 mmol/L (-3.0-3); Arterial Blood Gas Oxygen Sat 97.6 mmHG (95.0-98.0); Arterial COHb 1.2 % (0.0-3.0); Arterial Fraction of Oxyhgb 96.2 % (93.0-99.0); Arterial HCO3 17.6 mmol/L (22.0-26.0); Arterial MetHb 0.2 % (0.0-1.5); Arterial Total Hemglobin 16.4 g/dl (12.0-18.0); Arterial pCO2 35.2 mmhg (35-45); MODE VENT - AC; Site A-Line
[2017-11-09 23:45] LABS: PHOSPHORUS 7.1 mg/dl (2.5-4.9)
[2017-11-09 23:45] LABS: ALANINE AMINOTRANSFERASE 26 IU/L (13-69); ALBUMIN 2.5 g/dl (3.3-4.9); ALKALINE PHOSPHATASE 228 IU/L (42-121); AMYLASE 42 U/L (11-123); ANION GAP 17 (8-16); ASPARTATE AMINO TRANSFERASE 49 IU/L (15-46); BILIRUBIN,INDIRECT 0.3 mg/dl (0-1.1); BILIRUBIN,TOTAL 0.4 mg/dl (0.2-1.3); BLOOD UREA NITROGEN 52 mg/dl (7-20); CARBON DIOXIDE 21 mmol/L (21-31); CHLORIDE 113 mmol/L (97-110); CREATINE KINASE 108 IU/L (23-200); CREATININE 3.81 mg/dl (0.61-1.24); GAMMA GLUTAMYL TRANSPEPTIDASE 233 IU/L (0-50); GLUCOSE 69 mg/dl (70-220); LACTATE DEHYDROGENASE 699 IU/L (313-618); MAGNESIUM 1.6 mg/dl (1.7-2.5); POTASSIUM 4.8 mmol/L (3.5-5.1); SODIUM 146 mmol/L (135-144); TOTAL PROTEIN 5.6 g/dl (6.1-8.1)
[2017-11-09 23:48] LABS: LACTIC ACID 2.9 mmol/L (0.5-2.0)
[2017-11-09 23:49] LABS: LIPASE < 10 U/L (23-300)
[2017-11-09 23:55] LABS: CK INDEX 3.9; CK-MB 4.21 ng/ml (0.0-2.4)
[2017-11-09] MEDS: VASOPRESSIN 60 UNIT in SOD CHLORIDE 0.9% 57 ML IV (23:56)
[2017-11-09] MEDS: NACL IV* (23:57)
[2017-11-09] MEDS: HETASTARCH 6% IV* (23:57)
[2017-11-10] MEDS: DOBUTamine/D5W 2 MG/ML DRIP 250 ML IV (00:08)
[2017-11-10 00:31] LABS: IONIZED CALCIUM 1.1 mmol/L (1.1-1.4)
[2017-11-10] MEDS: LEVOTHYROXINE 200 MCG in SOD CHLORIDE 0.9% 500 ML IV ×2 (00:37→19:50)
[2017-11-10] MEDS: LEVOTHYROXINE 100 MCG VIAL IV (00:50)
[2017-11-10] MEDS: ARTIFICIAL TEARS 15 ML OPH BOTH EYES ×12 (01:00→23:05)
[2017-11-10 01:09] LABS: OSMOLALITY 308 mOsm/kg (280-295)
[2017-11-10 01:25] LABS: Arterial Base Excess -7.3 mmol/L (-3.0-3); Arterial Blood Gas Oxygen Sat 90.2 mmHG (95.0-98.0); Arterial COHb 0.9 % (0.0-3.0); Arterial Fraction of Oxyhgb 89.1 % (93.0-99.0); Arterial HCO3 20.7 mmol/L (22.0-26.0); Arterial MetHb 0.3 % (0.0-1.5); Arterial Total Hemglobin 15.7 g/dl (12.0-18.0); Blood Gas Low PEEP Setting 0 cmH2O; Blood Gas PS 0; MODE VENT - BIPHASIC; Site A-Line
[2017-11-10] MEDS ORDERED: DEXTROSE 50% 50 ML SYRINGE (01:49)
[2017-11-10] MEDS: METHYLPRED. NA SUCC 500 MG in SOD CHLORIDE 0.9% 100 ML IVPB ×4 (01:57→22:08)
[2017-11-10] MEDS: DEXTROSE 50% 50 ML SYRINGE IV (01:58)
[2017-11-10 02:39] LABS: AADO2 Arterial 230.1 mmHg (7.0-24.0); Arterial Base Excess -8.2 mmol/L (-3.0-3); Arterial Blood Gas Oxygen Sat 92.6 mmHG (95.0-98.0); Arterial Fraction of Oxyhgb 91.6 % (93.0-99.0); Arterial MetHb 0.1 % (0.0-1.5); Arterial Total Hemglobin 14.6 g/dl (12.0-18.0); Arterial pCO2 45.1 mmhg (35-45); Blood Gas Low PEEP Setting 0 cmH2O; Blood Gas PS 0; MODE VENT - BIPHASIC; Site A-Line
[2017-11-10 02:49] LABS: ADD UMIC YES; UR ASCORBIC ACID NEGATIVE (NEGATIVE); UR BILIRUBIN (Dip) NEGATIVE (NEGATIVE); UR BLOOD (Dip) 2+ mg/dL (NEGATIVE); UR CLARITY CLEAR (CLEAR); UR COLOR YELLOW (YELLOW); UR GLUCOSE (Dip) NEGATIVE (NEGATIVE); UR KETONES (Dip) NEGATIVE (NEGATIVE); UR LEUKOCYTE ESTERASE (Dip) NEGATIVE Leu/ul (NEGATIVE); UR MUCUS FEW /HPF (NONE SEEN); UR NITRITE (Dip) NEGATIVE (NEGATIVE); UR RBC 13 /HPF (0-5); UR SPECIFIC GRAVITY (Dip) 1.005 (1.003-1.030); UR TOTAL PROTEIN (Dip) NEGATIVE (NEGATIVE); UR UROBILINOGEN (Dip) NEGATIVE (NEGATIVE); UR WBC 3 /HPF (0-5)
[2017-11-10] MEDS: MAGNESIUM SULFATE 2 GM/50 ML 50 ML IVPB (03:05)
[2017-11-10] MEDS: CA CHLORIDE 10% 10 ML SYRINGE IV (03:05)
[2017-11-10 05:41] LABS: Arterial Blood Gas Oxygen Sat 96.7 mmHG (95.0-98.0); Arterial COHb 1.3 % (0.0-3.0); Arterial Fraction of Oxyhgb 95.2 % (93.0-99.0); Arterial HCO3 20.3 mmol/L (22.0-26.0); Arterial MetHb 0.3 % (0.0-1.5); Arterial Total Hemglobin 16.5 g/dl (12.0-18.0); Arterial pCO2 42.4 mmhg (35-45); Blood Gas Low PEEP Setting 0 cmH2O; Blood Gas PS 0; MODE VENT - BIPHASIC; Site A-Line
[2017-11-10 05:52] LABS: ADD MAN DIFF? NO
[2017-11-10 05:54] LABS: WHITE BLOOD COUNT 9.1 10^3/ul (4.8-10.8)
[2017-11-10 05:54] LABS: ABNORMAL IP MESSAGE 1; BASOPHILS % 0.2 % (0.0-2.0); EOSINOPHILS % 0.2 % (0.0-7.0); HEMATOCRIT 47.7 % (42.0-52.0); HEMOGLOBIN 15.5 g/dl (14.0-18.0); LYMPHOCYTES # 0.4 10^3/ul (0.8-2.9); LYMPHOCYTES % 4.6 % (15.0-51.0); MEAN CORPUSCULAR HEMOGLOBIN 29.8 pg (29.0-33.0); MEAN CORPUSCULAR HGB CONC 32.5 g/dl (32.0-37.0); MEAN CORPUSCULAR VOLUME 91.6 fl (82.0-101.0); MEAN PLATELET VOLUME 11.3 fl (7.4-10.4); MONOCYTE # 0.4 10^3/ul (0.3-0.9); MONOCYTES % 4.3 % (0.0-11.0); NEUTROPHIL # 8.2 10^3/ul (1.6-7.5); NEUTROPHILS % 90.4 % (39.0-77.0); PLATELET COUNT 147 10^3/UL (140-415); POSITIVE DIFF @See below; RED BLOOD COUNT 5.21 10^6/ul (4.70-6.10); RED CELL DISTRIBUTION WIDTH 15.8 % (11.5-14.5)
[2017-11-10 06:12] LABS: PHOSPHORUS 8.5 mg/dl (2.5-4.9)
[2017-11-10 06:12] LABS: MAGNESIUM 2.1 mg/dl (1.7-2.5)
[2017-11-10 06:14] LABS: ALANINE AMINOTRANSFERASE 33 IU/L (13-69); ALBUMIN 2.2 g/dl (3.3-4.9); ALBUMIN/GLOBULIN RATIO 0.68; ALKALINE PHOSPHATASE 232 IU/L (42-121); AMYLASE 54 U/L (11-123); ANION GAP 15 (8-16); ASPARTATE AMINO TRANSFERASE 49 IU/L (15-46); BILIRUBIN,INDIRECT 0.3 mg/dl (0-1.1); BILIRUBIN,TOTAL 0.8 mg/dl (0.2-1.3); BLOOD UREA NITROGEN 50 mg/dl (7-20); CALCIUM 8.3 mg/dl (8.4-10.2); CARBON DIOXIDE 22 mmol/L (21-31); CHLORIDE 115 mmol/L (97-110); CREATINE KINASE 75 IU/L (23-200); CREATININE 3.69 mg/dl (0.61-1.24); GLUCOSE 90 mg/dl (70-220); LACTATE DEHYDROGENASE 679 IU/L (313-618); POTASSIUM 5.7 mmol/L (3.5-5.1); PROTIME 19.4 Sec (11.9-14.9); PT RATIO 1.5; SODIUM 146 mmol/L (135-144); TOTAL PROTEIN 5.4 g/dl (6.1-8.1)
[2017-11-10 06:15] LABS: PARTIAL THROMBOPLASTIN TIME 47.4 Sec (25.0-35.0)
[2017-11-10 06:17] LABS: LACTIC ACID 2.4 mmol/L (0.5-2.0)
[2017-11-10 06:18] LABS: LIPASE < 10 U/L (23-300)
[2017-11-10 06:25] LABS: CK INDEX 5.7; CK-MB 4.25 ng/ml (0.0-2.4); TROPONIN-I 0.098 ng/ml (0.000-0.120)
[2017-11-10 06:25] LABS: OSMOLALITY 307 mOsm/kg (280-295)
[2017-11-10 06:26] LABS: IONIZED CALCIUM 1.1 mmol/L (1.1-1.4)
[2017-11-10] MEDS: ALBUMIN HUMAN 25% 100 ML IV ×3 (10:24→21:44)
[2017-11-10] MEDS: FUROSEMIDE 40 MG INJ IV ×3 (11:17→18:02)
[2017-11-10 11:26] LABS: ADD MAN DIFF? NO
[2017-11-10 11:34] LABS: WHITE BLOOD COUNT 9.2 10^3/ul (4.8-10.8)
[2017-11-10 11:34] LABS: ABNORMAL IP MESSAGE 1; BASOPHILS % 0.1 % (0.0-2.0); HEMATOCRIT 42.3 % (42.0-52.0); HEMOGLOBIN 14.1 g/dl (14.0-18.0); LYMPHOCYTES # 0.1 10^3/ul (0.8-2.9); LYMPHOCYTES % 1.3 % (15.0-51.0); MEAN CORPUSCULAR HGB CONC 33.3 g/dl (32.0-37.0); MEAN PLATELET VOLUME 11.4 fl (7.4-10.4); MONOCYTE # 0.2 10^3/ul (0.3-0.9); MONOCYTES % 2.3 % (0.0-11.0); NEUTROPHIL # 8.8 10^3/ul (1.6-7.5); NEUTROPHILS % 95.8 % (39.0-77.0); PLATELET COUNT 125 10^3/UL (140-415); POSITIVE DIFF @See below; RED CELL DISTRIBUTION WIDTH 15.5 % (11.5-14.5)
[2017-11-10 11:38] LABS: AADO2 Arterial 212.4 mmHg (7.0-24.0); Arterial Base Excess -5.8 mmol/L (-3.0-3); Arterial Blood Gas Oxygen Sat 97.6 mmHG (95.0-98.0); Arterial COHb 0.9 % (0.0-3.0); Arterial Fraction of Oxyhgb 96.4 % (93.0-99.0); Arterial MetHb 0.3 % (0.0-1.5); Arterial Total Hemglobin 15.5 g/dl (12.0-18.0); Arterial pCO2 35.2 mmhg (35-45); Blood Gas Low PEEP Setting 0 cmH2O; MODE VENT - BIPHASIC; Site A-Line
[2017-11-10 11:53] LABS: INR 1.69; PROTIME 20.2 Sec (11.9-14.9); PT RATIO 1.6
[2017-11-10 11:54] LABS: PARTIAL THROMBOPLASTIN TIME 44.3 Sec (25.0-35.0)
[2017-11-10 12:02] LABS: MAGNESIUM 1.8 mg/dl (1.7-2.5)
[2017-11-10 12:02] LABS: PHOSPHORUS 8.8 mg/dl (2.5-4.9)
[2017-11-10 12:05] LABS: ALANINE AMINOTRANSFERASE 34 IU/L (13-69); ALBUMIN 2.4 g/dl (3.3-4.9); ALBUMIN/GLOBULIN RATIO 0.77; ALKALINE PHOSPHATASE 202 IU/L (42-121); AMYLASE 64 U/L (11-123); ANION GAP 17 (8-16); ASPARTATE AMINO TRANSFERASE 43 IU/L (15-46); BILIRUBIN,INDIRECT 0.3 mg/dl (0-1.1); BILIRUBIN,TOTAL 0.7 mg/dl (0.2-1.3); BLOOD UREA NITROGEN 51 mg/dl (7-20); CALCIUM 8.2 mg/dl (8.4-10.2); CARBON DIOXIDE 21 mmol/L (21-31); CHLORIDE 113 mmol/L (97-110); CREATINE KINASE 54 IU/L (23-200); CREATININE 3.61 mg/dl (0.61-1.24); GLUCOSE 108 mg/dl (70-220); LACTATE DEHYDROGENASE 639 IU/L (313-618); SODIUM 145 mmol/L (135-144); TOTAL PROTEIN 5.5 g/dl (6.1-8.1)
[2017-11-10 12:13] LABS: CK INDEX 5.7; CK-MB 3.08 ng/ml (0.0-2.4); TROPONIN-I 0.086 ng/ml (0.000-0.120)
[2017-11-10 12:16] LABS: LIPASE < 10 U/L (23-300)
[2017-11-10 12:17] LABS: LACTIC ACID 2.6 mmol/L (0.5-2.0)
[2017-11-10 12:17] LABS: POTASSIUM 6.2 mmol/L (3.5-5.1)
[2017-11-10 12:44] LABS: OSMOLALITY 310 mOsm/kg (280-295)
[2017-11-10 12:53] LABS: IONIZED CALCIUM 1.1 mmol/L (1.1-1.4)
[2017-11-10 14:44] LABS: POTASSIUM 6.3 mmol/L (3.5-5.1)
[2017-11-10] MEDS: VASOPRESSIN 60 UNIT in SOD CHLORIDE 0.9% 57 ML IV (16:08)
[2017-11-10 16:52] LABS: ADD UMIC YES; UR ASCORBIC ACID NEGATIVE (NEGATIVE); UR BACTERIA FEW /HPF (NONE SEEN); UR BILIRUBIN (Dip) NEGATIVE (NEGATIVE); UR BLOOD (Dip) 2+ mg/dL (NEGATIVE); UR CLARITY CLEAR (CLEAR); UR COLOR YELLOW (YELLOW); UR GLUCOSE (Dip) NEGATIVE (NEGATIVE); UR KETONES (Dip) NEGATIVE (NEGATIVE); UR LEUKOCYTE ESTERASE (Dip) NEGATIVE Leu/ul (NEGATIVE); UR NITRITE (Dip) NEGATIVE (NEGATIVE); UR RBC 3 /HPF (0-5); UR SPECIFIC GRAVITY (Dip) 1.008 (1.003-1.030); UR TOTAL PROTEIN (Dip) NEGATIVE (NEGATIVE); UR UROBILINOGEN (Dip) NEGATIVE (NEGATIVE); UR WBC 1 /HPF (0-5)
[2017-11-10 17:03] LABS: ADD MAN DIFF? NO
[2017-11-10 17:05] LABS: ABNORMAL IP MESSAGE 1; BASOPHILS % 0.1 % (0.0-2.0); HEMATOCRIT 40.9 % (42.0-52.0); HEMOGLOBIN 13.9 g/dl (14.0-18.0); LYMPHOCYTES # 0.2 10^3/ul (0.8-2.9); LYMPHOCYTES % 1.8 % (15.0-51.0); MEAN CORPUSCULAR HEMOGLOBIN 30.2 pg (29.0-33.0); MEAN CORPUSCULAR VOLUME 88.9 fl (82.0-101.0); MEAN PLATELET VOLUME 11.1 fl (7.4-10.4); MONOCYTE # 0.4 10^3/ul (0.3-0.9); MONOCYTES % 3.8 % (0.0-11.0); PLATELET COUNT 137 10^3/UL (140-415); POSITIVE DIFF @See below; RED CELL DISTRIBUTION WIDTH 15.1 % (11.5-14.5)
[2017-11-10 17:05] LABS: WHITE BLOOD COUNT 9.5 10^3/ul (4.8-10.8)
[2017-11-10 17:28] LABS: ALANINE AMINOTRANSFERASE 28 IU/L (13-69); ALBUMIN 2.4 g/dl (3.3-4.9); ALBUMIN/GLOBULIN RATIO 0.82; ALKALINE PHOSPHATASE 180 IU/L (42-121); AMYLASE 58 U/L (11-123); ANION GAP 20 (8-16); ASPARTATE AMINO TRANSFERASE 44 IU/L (15-46); BILIRUBIN,INDIRECT 0.2 mg/dl (0-1.1); BILIRUBIN,TOTAL 0.8 mg/dl (0.2-1.3); BLOOD UREA NITROGEN 53 mg/dl (7-20); CARBON DIOXIDE 19 mmol/L (21-31); CHLORIDE 113 mmol/L (97-110); CREATINE KINASE 84 IU/L (23-200); CREATININE 3.97 mg/dl (0.61-1.24); GLUCOSE 173 mg/dl (70-220); LACTATE DEHYDROGENASE 593 IU/L (313-618); SODIUM 146 mmol/L (135-144); TOTAL PROTEIN 5.3 g/dl (6.1-8.1)
[2017-11-10 17:29] LABS: LACTIC ACID 2.6 mmol/L (0.5-2.0); PHOSPHORUS 8.8 mg/dl (2.5-4.9)
[2017-11-10 17:29] LABS: MAGNESIUM 1.7 mg/dl (1.7-2.5)
[2017-11-10 17:31] LABS: AADO2 Arterial 166.3 mmHg (7.0-24.0); Arterial Base Excess -3.8 mmol/L (-3.0-3); Arterial Blood Gas Oxygen Sat 98.9 mmHG (95.0-98.0); Arterial COHb 0.8 % (0.0-3.0); Arterial Fraction of Oxyhgb 97.7 % (93.0-99.0); Arterial HCO3 19.8 mmol/L (22.0-26.0); Arterial MetHb 0.4 % (0.0-1.5); Arterial Total Hemglobin 15.1 g/dl (12.0-18.0); Arterial pCO2 32.2 mmhg (35-45); Blood Gas Low PEEP Setting 0 cmH2O; Blood Gas PS 0; MODE VENT - BIPHASIC; Site A-Line
[2017-11-10 17:34] LABS: LIPASE < 10 U/L (23-300); POTASSIUM 6.1 mmol/L (3.5-5.1)
[2017-11-10 17:36] LABS: INR 1.73; PROTIME 20.6 Sec (11.9-14.9); PT RATIO 1.6
[2017-11-10 17:37] LABS: PARTIAL THROMBOPLASTIN TIME 44.7 Sec (25.0-35.0)
[2017-11-10 17:39] LABS: CK INDEX 3.2; TROPONIN-I 0.096 ng/ml (0.000-0.120)
[2017-11-10 17:42] LABS: ADD UMIC YES; UR AMORPHOUS CRYSTAL FEW /HPF (NONE SEEN); UR ASCORBIC ACID NEGATIVE (NEGATIVE); UR BACTERIA FEW /HPF (NONE SEEN); UR BILIRUBIN (Dip) NEGATIVE (NEGATIVE); UR BLOOD (Dip) 2+ mg/dL (NEGATIVE); UR CLARITY CLEAR (CLEAR); UR COLOR YELLOW (YELLOW); UR GLUCOSE (Dip) NEGATIVE (NEGATIVE); UR KETONES (Dip) NEGATIVE (NEGATIVE); UR LEUKOCYTE ESTERASE (Dip) NEGATIVE Leu/ul (NEGATIVE); UR NITRITE (Dip) NEGATIVE (NEGATIVE); UR RBC 5 /HPF (0-5); UR SPECIFIC GRAVITY (Dip) 1.008 (1.003-1.030); UR TOTAL PROTEIN (Dip) NEGATIVE (NEGATIVE); UR UROBILINOGEN (Dip) NEGATIVE (NEGATIVE); UR WBC 2 /HPF (0-5)
[2017-11-10 19:17] LABS: IONIZED CALCIUM 1.1 mmol/L (1.1-1.4)
[2017-11-10] MEDS: FUROSEMIDE 100 MG INJ IV (21:43)
[2017-11-10] MEDS ORDERED: DEXTROSE 50% 50 ML SYRINGE IV ×2 (22:30)
[2017-11-10] MEDS: ACCU-CHEK XX (23:00)
[2017-11-10 23:07] LABS: ADD MAN DIFF? NO
[2017-11-10 23:10] LABS: ABNORMAL IP MESSAGE 1; BASOPHILS % 0.1 % (0.0-2.0); HEMATOCRIT 37.3 % (42.0-52.0); HEMOGLOBIN 12.7 g/dl (14.0-18.0); LYMPHOCYTES # 0.4 10^3/ul (0.8-2.9); LYMPHOCYTES % 3.4 % (15.0-51.0); MEAN CORPUSCULAR HEMOGLOBIN 29.7 pg (29.0-33.0); MEAN CORPUSCULAR VOLUME 87.1 fl (82.0-101.0); MEAN PLATELET VOLUME 11.5 fl (7.4-10.4); MONOCYTE # 0.6 10^3/ul (0.3-0.9); MONOCYTES % 6.1 % (0.0-11.0); NEUTROPHIL # 9.4 10^3/ul (1.6-7.5); NEUTROPHILS % 89.7 % (39.0-77.0); PLATELET COUNT 133 10^3/UL (140-415); POSITIVE DIFF @See below; RED BLOOD COUNT 4.28 10^6/ul (4.70-6.10)
[2017-11-10 23:10] LABS: WHITE BLOOD COUNT 10.4 10^3/ul (4.8-10.8)
[2017-11-10 23:21] LABS: AADO2 Arterial 151.3 mmHg (7.0-24.0); Arterial COHb 0.5 % (0.0-3.0); Arterial Fraction of Oxyhgb 98.2 % (93.0-99.0); Arterial HCO3 18.7 mmol/L (22.0-26.0); Arterial MetHb 0.3 % (0.0-1.5); Arterial Total Hemglobin 13.6 g/dl (12.0-18.0); Arterial pCO2 28.3 mmhg (35-45); Blood Gas Low PEEP Setting 0 cmH2O; Blood Gas PS 0; MODE VENT - BIPHASIC; Site A-Line
[2017-11-10 23:27] LABS: ADD UMIC YES; INR 1.92; PROTIME 22.4 Sec (11.9-14.9); PT RATIO 1.8; UR ASCORBIC ACID NEGATIVE (NEGATIVE); UR BACTERIA FEW /HPF (NONE SEEN); UR BILIRUBIN (Dip) NEGATIVE (NEGATIVE); UR BLOOD (Dip) 2+ mg/dL (NEGATIVE); UR CLARITY CLEAR (CLEAR); UR COLOR YELLOW (YELLOW); UR GLUCOSE (Dip) NEGATIVE (NEGATIVE); UR KETONES (Dip) NEGATIVE (NEGATIVE); UR LEUKOCYTE ESTERASE (Dip) NEGATIVE Leu/ul (NEGATIVE); UR MUCUS FEW /HPF (NONE SEEN); UR NITRITE (Dip) NEGATIVE (NEGATIVE); UR RBC 32 /HPF (0-5); UR SPECIFIC GRAVITY (Dip) 1.008 (1.003-1.030); UR TOTAL PROTEIN (Dip) NEGATIVE (NEGATIVE); UR UROBILINOGEN (Dip) NEGATIVE (NEGATIVE); UR WBC 1 /HPF (0-5)
[2017-11-10 23:28] LABS: PARTIAL THROMBOPLASTIN TIME 47.7 Sec (25.0-35.0)
[2017-11-10 23:31] LABS: ALANINE AMINOTRANSFERASE 24 IU/L (13-69); ALBUMIN 2.5 g/dl (3.3-4.9); ALKALINE PHOSPHATASE 166 IU/L (42-121); AMYLASE 57 U/L (11-123); ANION GAP 20 (8-16); ASPARTATE AMINO TRANSFERASE 46 IU/L (15-46); BILIRUBIN,INDIRECT 0.3 mg/dl (0-1.1); BILIRUBIN,TOTAL 1.1 mg/dl (0.2-1.3); BLOOD UREA NITROGEN 58 mg/dl (7-20); CARBON DIOXIDE 19 mmol/L (21-31); CHLORIDE 111 mmol/L (97-110); CREATINE KINASE 173 IU/L (23-200); CREATININE 4.07 mg/dl (0.61-1.24); GLUCOSE 227 mg/dl (70-220); LACTATE DEHYDROGENASE 636 IU/L (313-618); POTASSIUM 5.9 mmol/L (3.5-5.1); SODIUM 144 mmol/L (135-144)
[2017-11-10 23:32] LABS: MAGNESIUM 1.8 mg/dl (1.7-2.5)
[2017-11-10 23:32] LABS: PHOSPHORUS 8.9 mg/dl (2.5-4.9)
[2017-11-10 23:39] LABS: OSMOLALITY 319 mOsm/kg (280-295)
[2017-11-10 23:42] LABS: TROPONIN-I 0.094 ng/ml (0.000-0.120)
[2017-11-10 23:45] LABS: OSMOLALITY 321 mOsm/kg (280-295)
[2017-11-10 23:48] LABS: CK INDEX 2.3; CK-MB 4.04 ng/ml (0.0-2.4); LIPASE < 10 U/L (23-300)
[2017-11-10 23:49] LABS: LACTIC ACID 2.6 mmol/L (0.5-2.0)
[2017-11-11 00:17] LABS: IONIZED CALCIUM 1.1 mmol/L (1.1-1.4)
[2017-11-11] MEDS: ACCU-CHEK XX ×11 (00:27→10:00)
[2017-11-11] MEDS: ARTIFICIAL TEARS 15 ML OPH BOTH EYES ×6 (00:35→11:00)
[2017-11-11] MEDS: FUROSEMIDE 100 MG INJ IV ×3 (01:21→08:52)
[2017-11-11] MEDS: INSULIN HUMAN REGULAR 100 UNIT in SOD CHLORIDE 0.9% 99 ML IV ×2 (01:24→06:03)
[2017-11-11] MEDS: MAGNESIUM SULFATE 1 GM/D5W 100 ML IVPB ×2 (02:26→07:30)
[2017-11-11] MEDS: PHYTONADIONE 10 MG in DEXTROSE 5% 50 ML IVPB (03:31)
[2017-11-11] MEDS: VANCOMYCIN 1.5 GM in SOD CHLORIDE 0.9% 250 ML IVPB (03:47)
[2017-11-11] MEDS: ALBUMIN HUMAN 25% 100 ML IV (05:11)
[2017-11-11 05:37] LABS: AADO2 Arterial 74.5 mmHg (7.0-24.0); Arterial Blood Gas Oxygen Sat 99.3 mmHG (95.0-98.0); Arterial COHb 0.6 % (0.0-3.0); Arterial Fraction of Oxyhgb 98.4 % (93.0-99.0); Arterial MetHb 0.3 % (0.0-1.5); Arterial Total Hemglobin 13.6 g/dl (12.0-18.0); Arterial pCO2 31.3 mmhg (35-45); Blood Gas Low PEEP Setting 0 cmH2O; MODE VENT - BIPHASIC; Site A-Line
[2017-11-11] MEDS: METHYLPRED. NA SUCC 500 MG in SOD CHLORIDE 0.9% 100 ML IVPB (05:48)
[2017-11-11 05:57] LABS: WHITE BLOOD COUNT 10.7 10^3/ul (4.8-10.8)
[2017-11-11 05:57] LABS: ABNORMAL IP MESSAGE 1; HEMATOCRIT 36.9 % (42.0-52.0); HEMOGLOBIN 12.7 g/dl (14.0-18.0); MEAN CORPUSCULAR HEMOGLOBIN 30.1 pg (29.0-33.0); MEAN CORPUSCULAR HGB CONC 34.4 g/dl (32.0-37.0); MEAN CORPUSCULAR VOLUME 87.4 fl (82.0-101.0); MEAN PLATELET VOLUME 11.6 fl (7.4-10.4); PLATELET COUNT 139 10^3/UL (140-415); POSITIVE DIFF @See below; RED BLOOD COUNT 4.22 10^6/ul (4.70-6.10); RED CELL DISTRIBUTION WIDTH 14.8 % (11.5-14.5)
[2017-11-11 06:10] LABS: INR 1.96; PROTIME 22.8 Sec (11.9-14.9); PT RATIO 1.8
[2017-11-11 06:11] LABS: PARTIAL THROMBOPLASTIN TIME 47.6 Sec (25.0-35.0)
[2017-11-11 06:14] LABS: ALANINE AMINOTRANSFERASE 21 IU/L (13-69); ALBUMIN 2.4 g/dl (3.3-4.9); ALBUMIN/GLOBULIN RATIO 0.85; ALKALINE PHOSPHATASE 157 IU/L (42-121); AMYLASE 60 U/L (11-123); ANION GAP 20 (8-16); ASPARTATE AMINO TRANSFERASE 58 IU/L (15-46); BILIRUBIN,INDIRECT 0.4 mg/dl (0-1.1); BLOOD UREA NITROGEN 59 mg/dl (7-20); CALCIUM 8.1 mg/dl (8.4-10.2); CARBON DIOXIDE 21 mmol/L (21-31); CHLORIDE 112 mmol/L (97-110); CREATINE KINASE 377 IU/L (23-200); CREATININE 4.14 mg/dl (0.61-1.24); GLUCOSE 149 mg/dl (70-220); LACTATE DEHYDROGENASE 600 IU/L (313-618); POTASSIUM 4.4 mmol/L (3.5-5.1); SODIUM 149 mmol/L (135-144); TOTAL PROTEIN 5.2 g/dl (6.1-8.1)
[2017-11-11 06:15] LABS: MAGNESIUM 2.2 mg/dl (1.7-2.5)
[2017-11-11 06:15] LABS: PHOSPHORUS 8.3 mg/dl (2.5-4.9)
[2017-11-11 06:25] LABS: CK-MB 7.54 ng/ml (0.0-2.4); TROPONIN-I 0.097 ng/ml (0.000-0.120)
[2017-11-11] MEDS ORDERED: AMIODARONE 900 MG in DEXTROSE 5% 482 ML IV (06:30)
[2017-11-11] MEDS ORDERED: METOPROLOL 5 MG INJ IV (06:30)
[2017-11-11] MEDS ORDERED: FUROSEMIDE 40 MG INJ IV (06:30)
[2017-11-11 06:40] LABS: LACTIC ACID 4.2 mmol/L (0.5-2.0)
[2017-11-11 06:40] LABS: LIPASE < 10 U/L (23-300)
[2017-11-11] MEDS: METOPROLOL 5 MG INJ IV (06:44)
[2017-11-11 06:50] LABS: ADD MAN DIFF? YES
[2017-11-11] MEDS: POTASSIUM CHLORIDE 50 ML IVPB ×2 (07:30→08:38)
[2017-11-11] MEDS: CA CHLORIDE 10% 10 ML SYRINGE IV (07:30)
[2017-11-11 07:57] LABS: IONIZED CALCIUM 1.1 mmol/L (1.1-1.4)
[2017-11-11 08:29] LABS: OSMOLALITY 320 mOsm/kg (280-295)
[2017-11-11] MEDS: DEXTROSE 50% 50 ML SYRINGE IV (08:29)
[2017-11-11 09:22] LABS: ANISOCYTOSIS 1+ (0-0); BAND NEUTROPHILS #M 1.6 10^3/ul (0.0-0.6); BAND NEUTROPHILS % (M) 15 % (0-4); LYMPHOCYTES #M 0.4 10^3/ul (0.8-2.9); LYMPHOCYTES % (M) 4 % (15-51); MONOCYTE #M 0.2 10^3/ul (0.3-0.9); MONOCYTES % (M) 2 % (0-11); PLATELET ESTIMATE DECREASED; SEG NEUT #M 8.6 10^3/ul (1.6-7.5); SEGMENTED NEUTROPHILS (M) % 79 % (39-77); SMUDGE%M 14 % (0-0)
== END 2017-11-10 10:37 | disposition expired | DRG 207 ==
LOC: E/R 01:26 → ICU 02:38
PROC: 06HM33Z Insertion of Infusion Device into Right Femoral Vein, Percutaneous Approach (ICD-10-PCS; principal; 2017-11-06)
PROC: 5A1955Z Respiratory Ventilation, Greater than 96 Consecutive Hours (ICD-10-PCS; 2017-11-06)
PROC: 0BH17EZ Insertion of Endotracheal Airway into Trachea, Via Natural or Artificial Opening (ICD-10-PCS; 2017-11-06)
DX: J81.0 Acute pulmonary edema (principal); J96.22 Acute and chronic respiratory failure with hypercapnia; N17.0 Acute kidney failure with tubular necrosis; J69.0 Pneumonitis due to inhalation of food and vomit; J81.1 Chronic pulmonary edema; G93.1 Anoxic brain damage, not elsewhere classified; E87.2 Acidosis; I42.9 Cardiomyopathy, unspecified; I46.9 Cardiac arrest, cause unspecified; R57.0 Cardiogenic shock; I10 Essential (primary) hypertension; Z72.0 Tobacco use; E11.9 Type 2 diabetes mellitus without complications; J43.9 Emphysema, unspecified; E87.5 Hyperkalemia; G47.30 Sleep apnea, unspecified; D69.6 Thrombocytopenia, unspecified; R09.02 Hypoxemia; Z66 Do not resuscitate; R40.2440 Other coma, without documented Glasgow coma scale score, or with partial score reported, unspecified time
CPT/HCPCS: 31500; 36415; 36600; 71045; 76700; 76937; 80048; 80053; 80076; 80307; 81001; 82150; 82247; 82248; 82330; 82550; 82553; 82803; 82962; 82977; 83605; 83615; 83690; 83735; 83880; 83930; 84100; 84132; 84484; 85025; 85378; 85384; 85610; 85730; 86850; 86900; 86901; 87040; 87070; 87081; 87086; 89220; 92950; 93005; 93306; 94002; 94003; 94640; 94770; 96374; 99291-25; J1250

== ENCOUNTER 2017-11-10 10:37 | Inpatient (IN) | payer OTHER | END 2017-11-11 14:00 | disposition EXP | DRG 951 | LOC: ICU 10:37 | DX: Z52.89 Donor of other specified organs or tissues (principal) ==